=== PATIENT | female | born 1985 | race Caucasian/White ===

== ENCOUNTER 2017-04-07 12:47 | Emergency (ER) | payer OTHER ==
[~2017-04-07] VITALS: Ht 162.6 cm; Wt 76.7 kg
[2017-04-07 12:57] VITALS: BP 116/82
== END 2017-04-07 13:59 | disposition home or self-care (01) ==
LOC: ED 12:47
DX: N39.0 Urinary tract infection, site not specified (principal)
CPT/HCPCS: J1885; Q0162